=== PATIENT | male | born 1965 | race Two or more races ===

== ENCOUNTER 2018-06-22 08:37 | Emergency (ER) | payer BC ==
[~2018-06-22] VITALS: Ht 157.5 cm; Wt 84.8 kg
[2018-06-22 08:59] VITALS: BP 142/94
[2018-06-22] MEDS ORDERED: KETOROLAC TROMETH 60MG/2ML VIAL IM ONE (09:45)
== END 2018-06-22 10:19 | disposition home or self-care (01) ==
LOC: ER 08:37
DX: M10.072 Idiopathic gout, left ankle and foot (principal)
CPT/HCPCS: 36415; 73562; 84550; 96372; 99284; J1885